=== PATIENT | male | born 1965 | race Two or more races ===

== ENCOUNTER 2020-10-08 13:56 | Outpatient (CLI) | payer BC, SELFPAY | END 2020-10-08 13:57 | disposition home or self-care (01) | LOC: ANHCOVIDVC 13:56 | DX: Z23 Encounter for immunization (principal) | CPT/HCPCS: 0001A; 91300 ==

== ENCOUNTER 2020-10-29 14:02 | Outpatient (CLI) | payer BC, SELFPAY | END 2020-10-29 14:03 | disposition home or self-care (01) | LOC: ANHCOVIDVC 14:02 | DX: Z23 Encounter for immunization (principal) | CPT/HCPCS: 0002A; 91300 ==